=== PATIENT | male | born 1945 | race Caucasian/White ===

== ENCOUNTER → 2017-04-14 | Outpatient (REF) | payer MEDICARE, BC ==
[~2017-04-14] MED LIST: /BACIOPOI; ALOP5TAB; FERR325T; GLUCTAB; HYDR25TA6; IBUP800T; INVANZ; LISI10TA4; MOM; PAIN325T; PRIL20CA; VICO5TAB; [UNRECOGNIZED DRUG - OTHER]; heparin
== END ==
LOC: M LAB REF 13:44
PROVIDERS: ATTEND Internal Medicine Endocrinology, Diabetes & Metabolism
DX: E11.22 Type 2 diabetes mellitus with diabetic chronic kidney disease (principal)

== ENCOUNTER → 2017-08-16 | Outpatient (REF) | payer MEDICARE, BC ==
[2017-08-16 14:14] LABS: FOLATE 20.6 NG/ML
[2017-08-16 14:15] LABS: FERRITIN 186 NG/ML (26-388); IRON (FE) 70 UG/DL (65-175); PERCENT SATURATION 22.7 % (19.7-50.0); TOTAL IRON BINDING CAPACITY 308 UG/DL (250-450)
[2017-08-16 14:18] LABS: VITAMIN B12 LEVEL 1257 PG/ML
== END ==
LOC: M LAB REF 13:28
DX: D64.9 Anemia, unspecified (principal)
CPT/HCPCS: 82746

== ENCOUNTER → 2021-03-18 | Outpatient (REF) | payer MEDICARE, BC | LOC: M LAB REF 13:04 | PROVIDERS: ATTEND Nurse Practitioner Family | DX: E83.42 Hypomagnesemia (principal) ==